=== PATIENT | female | born 1985 | race Caucasian/White ===

== ENCOUNTER 2018-04-19 09:18 | Emergency (ER) | payer OTHER ==
[2018-04-19 09:34] VITALS: BMI 34.3
--- NOTE | 2018-04-19 10:04 | PDOC ---
Attending Attestation - Resident Resident Name: Archana Camargo - ED Attending Attestation I have performed the following: I have examined & evaluated the patient, The case was reviewed & discussed with the resident, I agree w/resident's findings & plan, Exceptions are as noted - HPI HPI: 04/19/18 10:07 The patient is a 33 year old female, with a significant past medical history of asthma and anxiety, who presents to the emergency department with, bilateral upper and lower extremity weakness and tingling. She describes her tingling as ants crawling on her. As per patient, just prior to her arrival she came back from vacation on [place]. While on the plane she felt normal but, upon arrival while on her car ride home her symptoms onset. Her last menses was one week ago. pt denies any associated headache, vision changes, fever/chills, neck pain, back pain, recent trauma. She denies recent fevers, chills, or dizziness. She denies recent nausea, vomit , diarrhea or constipation. She denies recent dysuria, frequency, urgency or hematuria. She denies recent chest pain or shortness of breath. Allergies: Aspirin. Past surgical history: None reported. Social history: Nonsmoker. Denies EtOH use and recreational drug use. - Physicial Exam PE: 04/19/18 11:13 Exam: general: well appearing in no distress cardiac: rrr, no m/r/g pulm: cta b/l abd: soft nontender, no rebound/guarding neuro: no facial assymetry, sensation intact in all extremities, motor diffuse motor weakness (~5-/5) - Medical Decision Making 04/19/18 11:14 33y F presents with complaint of diffuse tingling in her extermities, cramping/ stiffness of her hands and generalized weakness on the car ride home from the airport. No associated recent ilness, fever/chills, cp, sob, abd pain, n/v, injury/traumna, headache, lightheadedness, diarrhea, melena, bpr. ddx: metabolic derangement, ?MS (no apparent prior history of neuro sx) will ck her lab work ct head will dw neuro 04/19/18 14:52 labs reviewed pts sypmtoms resolved currently ambulatory in the ED evaluated by neuro - will fu with neuro as outpatient I discussed the physical exam findings, ancillary test results and final diagnoses with the patient. I answered all of the patient's questions. The patient was satisfied with the care received and felt comfortable with the discharge plan and treatment plan. The patient will call their primary care physician within 24 hours to arrange follow-up and will return to the Emergency Department with any new, persistent or worsening symptoms. Heart Score/ECG Review - ECG Impressions Comment:: 04/19/18 14:59 Twelve-lead EKG was performed and reviewed by me. There is normal sinus rhythm with a normal rate. Rate of 66 The axis is normal. The intervals are normal. There is normal R wave progression There are no ST or T wave abnormalities. Impression: Normal twelve-lead EKG
--- NOTE | 2018-04-19 10:39 | PDOC ---
History of Present Illness - General Chief Complaint: Headache Stated Complaint: LOSS OF SENSATION Time Seen by Provider: 04/19/18 09:37 - History of Present Illness Initial Comments: 04/19/18 11:08 33 year old with a history of anxiety, depression and insomnia who presents with tingling at the back of the head and numbness and inability to move her hands and feet just after returning from a 3 hour plane flight from [facility]. Per family, the patient was unable to bear her weight and they had to help her into the car. The patient denies LOC, head trauma, changes in vision, ringing in the ears, recent illness, nausea or vomiting, and fevers. She notes that she feels as though there is tingling in both her hands and forearms as if there are bugs crawling. She has never had an episode like this before. She denies chest pain, abdominal pain, shortness of breath, or headache. She denies use of BCP. PMHX; as in HPI PSHX: bilateral tubal ligation Meds: Zoloft, Ativan, Restoril Allergies: ASA Tob: none Etoh: none Rec drugs: none Past History - Past Medical History Allergies/Adverse Reactions: Allergies Allergy/AdvReac Type Severity Reaction Status Date / Time aspirin Allergy Verified 04/19/18 09:25 Home Medications: Ambulatory Orders Lorazepam [Ativan] 1 mg PO PRN 04/19/18 Sertraline HCl [Zoloft] 25 mg PO PRN 04/19/18 Temazepam [Restoril] 15 mg PO PRN 04/19/18 Asthma: Yes COPD: No - Suicide/Smoking/Psychosocial Hx Smoking History: Never smoked *Physical Exam - Vital Signs Last Vital Signs Temp Pulse Resp BP Pulse Ox 97.7 F 85 18 126/74 100 04/19/18 09:21 04/19/18 09:21 04/19/18 09:21 04/19/18 09:21 04/19/18 09:21 - Physical Exam Comments: 04/19/18 12:25 GENERAL: Awake, alert, and fully oriented, in no acute distress HEAD: No signs of trauma, normocephalic, atraumatic EYES: PERRLA, EOMI, sclera anicteric, conjunctiva clear ENT: Auricles normal inspection, hearing grossly normal, nares patent, oropharynx clear without exudates. Moist mucosa NECK: Normal ROM, supple, no lymphadenopathy or masses, no C-spine tenderness LUNGS: No distress, speaks full sentences, clear to auscultation bilaterally HEART: Regular rate and rhythm, normal S1 and S2, no murmurs, rubs or gallops, peripheral pulses normal and equal bilaterally. ABDOMEN: Soft, nontender, normoactive bowel sounds. No guarding, no rebound. No masses EXTREMITIES : Normal inspection, Normal range of motion, no edema. No clubbing or cyanosis. NEUROLOGICAL: Cranial nerves II through XII grossly intact. 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 SKIN: Warm, Dry, normal turgor, no rashes or lesions noted ED Treatment Course - LABORATORY CBC & Chemistry Diagram: 04/19/18 11:15 04/19/18 11:15 Medical Decision Making - Medical Decision Making 33 year old with a history of anxiety who presents with tingling at the back of the head and numbness and inability to move her hands and feet just after returning from a 3 hour plane flight from [facility]. Consider psychogenic vs MS vs 04/19/18 10:39 Neurology consulted. They will come see the patient. 04/19/18 12:32 *DC/Admit/Observation/Transfer Diagnosis at time of Disposition: Loss, sensation, Weakness - Discharge Dispostion Disposition: HOME Condition at time of disposition: Stable Decision to Admit order: No - Referrals Referrals: Alexis Cisneros MD [Staff Physician] - - Patient Instructions Printed Discharge Instructions: DI for Muscle Weakness Additional Instructions: You were seen in the ED for new onset weakness and sensation loss in the hands and feet. You were evaluated with labwork and imaging and the Neurology team. You showed improvement of symptoms in the ED. There does not appear to be an immediate need for you to be hospitalized today. You were given a referral to neurology and advised to follow up in 1 week. Return to the ED if you have worsening of symptoms, significant weakness, fevers , nausea, headaches, nausea or vomiting. Usted fue visto en el servicio de urgencias por grayson nueva debilidad y prdida de sensibilidad en las bartolome y los pies. Usted fue evaluado con el trabajo de laboratorio y las imgenes y el equipo de Neurologa. Mostr mejora de los sntomas en el servicio de urgencias. No parece aida grayson necesidad inmediata de que sea hospitalizado hoy. Le dieron un referido a neurologa y le aconsejaron que lo siguiera en 1 semana. Regrese al departamento de emergencias si tiene un empeoramiento de los sntomas , debilidad significativa, fiebre, nuseas, ortiz de raysa, nuseas o vmitos. - Post Discharge Activity
[2018-04-19] MEDS ORDERED: SODIUM CHLORIDE 1,000 ML IV SCH (10:45)
[2018-04-19 11:22] LABS: BASO % 0.5 % (0-2.0); EOS % 1.3 % (0-4.5); HEMATOCRIT 39.3 % (32.4-45.2); HEMOGLOBIN 13.1 GM/dL (10.7-15.3); LYMPH % 14.3 % (8-40); MCH 29.7 pg (25.7-33.7); MCHC 33.4 g/dl (32.0-36.0); MEAN CELL VOLUME 88.9 fl (80-96); MEAN PLT VOLUME 9.6 fl (7.5-11.1); MONO % 7.1 % (3.8-10.2); NEUT % 76.8 % (42.8-82.8); PLATELET COUNT 297 K/MM3 (134-434); RBC 4.41 M/mm3 (3.60-5.2); RDW 13.7 % (11.6-15.6); WHITE BLOOD COUNT 10.3 K/mm3 (4.0-10.0)
[2018-04-19 11:43] LABS: ALBUMIN 4.3 g/dl (3.4-5.0); ALK PHOS 56 U/L (45-117); ANION GAP 8 (8-16); BILIRUBIN,TOTAL 0.4 mg/dL (0.2-1.0); BLOOD UREA NITROGEN 13 mg/dL (7-18); CALCIUM 9.9 mg/dL (8.5-10.1); CHLORIDE 106 mmol/L (98-107); CO2 24 mmol/L (21-32); CREATININE 0.9 mg/dL (0.55-1.02); GLUCOSE,RANDOM 94 mg/dL (74-106); POTASSIUM 4.3 mmol/L (3.5-5.1); SGOT/AST 24 U/L (15-37); SGPT/ALT 31 U/L (12-78); SODIUM 138 mmol/L (136-145); TOT PROT 7.9 g/dl (6.4-8.2)
[2018-04-19 12:06] LABS: URINE APPEARANCE CLEAR; URINE BILIRUBIN NEGATIVE (<2.0 mg/dL); URINE COLOR YELLOW; URINE GLUCOSE (UA) NEGATIVE (NEGATIVE); URINE KETONE NEGATIVE (NEGATIVE); URINE LEUK ESTERASE NEGATIVE (NEGATIVE); URINE NITRITE NEGATIVE (NEGATIVE); URINE UROBILINOGEN NEGATIVE mg/dL (0.2-1.0)
[2018-04-19 12:13] LABS: URINE PROTEIN 1+ (NEGATIVE)
[2018-04-19 12:15] LABS: EPI CELLS RARE /HPF (FEW); URINE BACTERIA RARE /hpf (NONE SEEN); URINE HYALINE CAST 1 /lpf; URINE MUCUS FEW
[2018-04-19 12:25] LABS: COCAINE, UR NEGATIVE ng/ml (CUTOFF=300); METHADONE, UR NEGATIVE ng/ml (CUTOFF=300); OPIATES, URI NEGATIVE ng/ml (CUTOFF=300); PHENCYCLIDINE,URINE NEGATIVE ng/ml (CUTOFF=25); URINE AMPHETAMINES NEGATIVE ng/ml (CUTOFF=500); URINE BARBITURATES NEGATIVE ng/ml (CUTOFF=200); URINE BENZODIAZEPINES NEGATIVE ng/ml (CUTOFF=200)
[2018-04-19 13:43] VITALS: BP 104/51; PULSE 70
--- NOTE | 2018-04-19 14:03 | CON.NEURO ---
Consult Consult Specialty:: [facility] Referred by:: ED Reason for Consultation:: Parathesia - History of Present Illness History of Present Illness: 33 years old spansih speaking female patient with 1. history of anxiety, 2. depression 3. insomnia who presents with tingling at the back of the head and numbness and inability to move her hands and feet just after returning from a 3 hour plane flight from [facility]. Per family, the patient was unable to bear her weight and they had to help her into the car. The patient denies LOC, head trauma, changes in vision, ringing in the ears, recent illness, nausea or vomiting, and fevers. She notes that she feels as though there is tingling in both her hands and forearms as if there are bugs crawling. She has never had an episode like this before. She denies chest pain, abdominal pain, shortness of breath, or headache. She denies use of BCP. PMHX; as in HPI PSHX: bilateral tubal ligation Meds: Zoloft, Ativan, Restoril Allergies: ASA Tob: none Etoh: none Rec drugs: none Seen the patient in the ER - History Source History Provided By: Patient Limitations to Obtaining History: No Limitations - Smoking History Smoking history: Never smoked Home Medications - Allergies Allergies/Adverse Reactions: Allergies Allergy/AdvReac Type Severity Reaction Status Date / Time aspirin Allergy Verified 04/19/18 09:25 - Home Medications Home Medications: Ambulatory Orders Lorazepam [Ativan] 1 mg PO PRN 04/19/18 Sertraline HCl [Zoloft] 25 mg PO PRN 04/19/18 Temazepam [Restoril] 15 mg PO PRN 04/19/18 Family Disease History - Family Disease History Family History: Denies Review of Systems - Review of Systems Constitutional: reports: No Symptoms Eyes: reports: No Symptoms Integumentary: reports: No Symptoms Physical Exam-Neuro Vital Signs: Vital Signs Temperature 97.7 F 04/19/18 09:21 Pulse Rate 70 04/19/18 13:42 Respiratory Rate 16 04/19/18 13:42 Blood Pressure 104/51 04/19/18 13:42 O2 Sat by Pulse Oximetry (%) 100 04/19/18 13:42 Constitutional: Yes: Well Nourished Neck: Yes: WNL Labs: CBC, BMP 04/19/18 11:15 04/19/18 11:15 - Neuro Exam DTR's: 1+ Left Bicep, 1+ Right Bicep, 1+ Left Tricep, 1+ Right Tricep Response to light touch: Normal Response to pain prick: Normal Response to temperature: Normal Motor Strength: 4/5: Left Arm, Right Arm, Left Leg, Right Leg Gait: Deferred Imaging - Results Cat Scan: Image Reviewed Problem List - Problems (1) History of paresthesia Assessment/Plan: Non focal neuro exam Feels better No complaints Neuro ok to go home Continue Zolofot Will get MRI C spine as OP Thanks Code(s): Z87.898 - PERSONAL HISTORY OF OTHER SPECIFIED CONDITIONS
[2018-04-19 15:15] VITALS: TEMP 97.4
--- NOTE | 2018-04-19 20:02 | EKG ---
Test Reason : Blood Pressure : / mmHG Vent. Rate : 066 BPM Atrial Rate : 066 BPM P-R Int : 142 ms QRS Dur : 084 ms QT Int : 422 ms P-R-T Axes : 030 018 027 degrees QTc Int : 442 ms NORMAL SINUS RHYTHM NORMAL ECG NO PREVIOUS ECGS AVAILABLE Confirmed by EZEQUIEL RIGGS MD ([id number]) on 04/19/2018 8:02:02 PM Referred By: Confirmed By:EZEQUIEL RIGGS MD
== END 2018-04-19 15:15 | disposition home or self-care (01) ==
LOC: JER 09:18
DX: R20.8 Other disturbances of skin sensation (principal); M62.81 Muscle weakness (generalized); F41.8 Other specified anxiety disorders; J45.909 Unspecified asthma, uncomplicated
CPT/HCPCS: 36415; 70450-TC; 80053; 80307; 81003; 81015; 85025; 87086; 93005; 93010; 99283-25; J7030